=== PATIENT | female | born 1960 | race Two or more races ===

== ENCOUNTER 2022-02-02 10:10 | Emergency (ER) | payer MEDICAID ==
[~2022-02-02] VITALS: Ht 152.4 cm; Wt 96.2 kg
[~2022-02-02 10:10] MED LIST: NORPTMEDS CO
[2022-02-02 11:18] VITALS: BP 174/76
[2022-02-02] MEDS ORDERED: ALBU108A5 IN (11:27)
[2022-02-02] MEDS ORDERED: AZIT500T66 PO (11:27)
[2022-02-02] MEDS ORDERED: PROM1SOL4 PO (11:27)
== END 2022-02-02 11:38 | disposition home or self-care (01) ==
LOC: ER 10:10
DX: J03.90 Acute tonsillitis, unspecified (principal); J20.9 Acute bronchitis, unspecified; I10 Essential (primary) hypertension; Z90.710 Acquired absence of both cervix and uterus
CPT/HCPCS: 71045

== ENCOUNTER 2025-09-08 09:32 | Inpatient (IN) | payer MEDICAID, OTHER ==
[~2025-09-08] VITALS: Ht 154.9 cm; Wt 95.5 kg
[~2025-09-08 09:32] MED LIST changes: +ALBU108A5 IN; +AZIT500T66 PO; +PROM1SOL4 PO
--- NOTE | 2025-09-08 09:56 | ECG ---
[facility] Test Date: 2025-09-08 Test Time: 09:49:04 Pat Name: VIOLETA RASMUSSEN Department: [facility] ED Room: 0294 Gender: F Data Architect Manager: YONATAN : 1960 Requested By: SANDER WALTON Order Number: [id number] Reading MD: Suhail Rao Measurements Intervals [place] Rate: 72 P: 46 NH: 158 QRS: 17 QRSD: 88 T: 51 QT: 391 QTc: 428 Interpretive Statements Sinus rhythm Electronically Signed On 09-14-2025 13:47:15 PDT by Suhail Rao Please click the below link to view image of tracing.
[2025-09-08 10:07] VITALS: PULSE 74; RESP 19; O2SAT 95
--- NOTE | 2025-09-08 10:43 | ED.PDOC ---
History of Present Illness HPI Comments 64 year old female presents to the ED with a chief complaint of dizziness onset 2 weeks. For the past 2 weeks, patient has been experiencing dizziness, and headache. Fort the past week, she has been experiencing LT ear pain. Since this morning, she has been experiencing nausea, vomiting with abdominal discomfort, urinary frequency. Denies fever, chills, diarrhea, chest pain, shortness of breath, head injury, dysuria, hematuria. No other symptoms or modifying factors present at this time. Chief Complaint: Dizziness Time Seen by MD: 10:20 Reviewed Notes: Medications, Allergies Allergies: Coded Allergies: NO KNOWN ALLERGIES (Unverified , 03/23/14) Home Meds Active Scripts Albuterol Sulfate (Albuterol Sulfate Hfa) 108 Mcg/Act Aer, 108 MCG IN TID PRN, #90 AER Prov:BETTINA MCMANUS 02/02/22 Promethazine-Dm (Promethazine Dm 6.25-15 mg/5Ml) 1 Yodit Yodit, 10 YODIT PO TID, #160 ML Prov:BETTINA MCMANUS 02/02/22 Azithromycin (Azithromycin) 500 Mg Tab, 500 MG PO DAILY for 6 Days, #6 TAB Prov:BETTINA MCMANUS 02/02/22 Reported Medications No Reported Medication (NO REPORTED MEDICATION) Ea, 0 CO UNK, EA PATIENT HAS NO REPORTED MEDICATIONS 03/23/14 Information Source: Patient, Spouse Mode of Arrival: Ambulatory Severity: Moderate Timing: Weeks Duration: Since onset Prehospital treatment: None Past Medical History PAST MEDICAL HISTORY: Denies Surgical History: EXHIBIT ELECTRICIAN History: No Pertinent EXHIBIT ELECTRICIAN History Family History Family History: Reviewed,noncontributory to illness, No family hx of Cancer, No family hx of DM, No family hx of Heart juvenal, No family hx of HTN, No family hx ofKidney juvenal, No family hx of Liver juvenal, No family hx of Lung juvenal, No family hx of Stroke Social History Smoker: Non-Smoker Alcohol: Denies ETOH Use Drugs: Denies Drug Use Lives In: Home Constitutional: denies: chills, diaphoresis, fatigue, fever, malaise, sweats, weakness, others EENTM: reports: ear pain (LT); denies: blurred vision, double vision, ear bleeding, ear discharge, ear drainage, ear ringing, eye pain, eye redness, hearing loss, mouth pain, mouth swelling, nasal discharge, nose bleeding, nose congestion, nose pain, photophobia, tearing, throat pain, throat swelling, voice changes, others Respiratory: denies: cough, hemoptysis, orthopnea, SOB at rest, shortness of breath, SOB with excertion, stridor, wheezing, others Cardiovascular: denies: chest pain, dizzy spells, diaphoresis, Dyspnea on exertion, edema, irregular heart beat, left arm pain, lightheadedness, palpitations, PND, syncope, others Gastrointestinal: reports: abdominal pain, nausea, vomiting; denies: abdomen distended, blood streaked bowels, constipated, diarrhea, dysphagia, difficulty swallowing, hematemesis, melena, poor appetite, poor fluid intake, rectal bleeding, rectal pain, others Genitourinary: denies: abnormal vagina bleeding, burning, dyspareunia, dysuria, flank pain, frequency, hematuria, incontinence, pain, , vagina discharge, urgency, others Neurological: reports: dizziness; denies: fainting, headache, left sided numbness, left sided weakness, numbness, paresthesia, pre-existing deficit, right sided numbness, right sided weakness, seizure, speech problems, tingling, tremors, weakness, others Musculoskeletal: denies: back pain, gout, joint pain, joint swelling, muscle pain, muscle stiffness, neck pain, others Integumetry: denies: bruises, change in color, change in hair/nails, dryness, laceration, lesions, lumps, rash, wounds, others Allergic/Immunocompromised: denies: Difficulty Healing, Frequent Infections, Hives, Itching, others Hematologic/Lymphatic: denies: anemia, blood clots, easy bleeding, easy bruising, swollen glands, others Endocrine: denies: excessive hunger, excessive sweating, excessive thirst, excessive urination, flushing, intolerance to cold, intolerance to heat, unexplained weight gain, unexplained weight loss, others Psychiatric: denies: anxiety, bipolar disorder, depression, hopeless, panic disorder, schizophrenia, sleepless, suicidal, others All Other Systems: Reviewed and Negative Physical Exam General Appearance: Normal HEENT: Normal ENT Inspection, Pharynx Normal, TMs Normal Neck: Full Range of Motion, Non-Tender, Normal, Normal Inspection Respiratory: Chest Non-Tender, Lungs Clear, No Accessory Muscle Use, No Respi ratory Distress, Normal Breath Sounds Cardiovascular: No Edema, No JVD, No Murmur, No Gallop, Normal Peripheral Pulses, Regular Rate/Rhythm Breast Exam: Deferred Gastrointestinal: No Organomegaly, Non Tender, No Pulsatile Mass, Normal Bowel Sounds, Soft Genitalia: Deferred Pelvic: Deferred Rectal: Deferred Extremities: No calf tenderness, Normal capillary refill, Normal inspection, Normal range of motion, Non-tender, No pedal edema Musculoskeletal : Apperance: Normal Neurologic: Alert, surface plate inspector II-XII nml as Tested, No Motor Deficits, Normal Affect, Normal Mood, No Sensory Deficits Cerebellar Function: Normal Reflexes: Normal Skin: Dry, Normal Color, Warm Lymphatic: No Adenopathy Was a procedure done? Was a procedure done?: No Differential Dx Considerations may include: ACS, CVA, viral syndrome, electrolyte abnormality, infectious etiology, CVA X-Ray, Labs, Meds, VS Vital Signs Date Time Temp Pulse Resp B/P (MAP) Pulse Ox O2 Delivery O2 Flow Rate FiO2 09/08/25 12:08 97.7 73 16 158/85 (109) 95 97.7 09/08/25 10:07 97.8 74 19 132/65 (87) 95 97.8 09/08/25 10:07 74 19 95 Room Air* 0 21 09/08/25 09:49 72 09/08/25 09:35 98.5 97 16 154/87 74 98.5 Lab Test 09/08/25 13:59 09/08/25 11:45 09/08/25 10:55 Range/Units Troponin I High Sensitivity Pending 18 17 </=34 ng/L White Blood Count 7.0 4.4-10.8 10^3/uL Red Blood Count 5.17 4.0-5.20 10^6/uL Hemoglobin 15.2 12.2-16.2 g/dL Hematocrit 44.7 36.0-46.0 % Mean Corpuscular Volume 86.6 80.0-100.0 fL Mean Corpuscular Hemoglobin 29.3 28.0-32.0 pg Mean Corpuscular Hemoglobin Concent 33.9 32.0-36.0 g/dL Red Cell Distribution Width 13.6 11.8-14.3 % Platelet Count 298 140-450 10^3/uL Mean Platelet Volume 7.7 6.9-10.8 fL Neutrophils (%) (Auto) 74.0 37.0-80.0 % Lymphocytes (%) (Auto) 19.0 10.0-50.0 % Monocytes (%) (Auto) 5.0 0.0-12.0 % Eosinophils (%) (Auto) 1.2 0.0-7.0 % Basophils (%) (Auto) 0.8 0.0-2.0 % Neutrophils # (Auto) 5.2 1.6-8.6 10 ^3/uL Lymphocytes # (Auto) 1.3 0.4-5.4 10 ^3/uL Monocytes # (Auto) 0.4 0-1.3 10 ^3/uL Eosinophils # (Auto) 0.1 0-0.8 10 ^3/uL Basophils # (Auto) 0.1 0-0.2 10 ^3/uL Nucleated Red Blood Cells 0.0 % Sodium Level 141 136-145 mmol/L Potassium Level 3.8 3.5-5.1 mmol/L Chloride Level 103 98-107 mmol/L Carbon Dioxide Level 30 20-31 mmol/L Anion Gap 8 5-15 Blood Urea Nitrogen 15 9-23 mg/dL Creatinine 0.57 0.550-1.02 mg/dL Glomerular Filtration Rate Calc 101 >90 mL/min BUN/Creatinine Ratio 26.3 H 10.0-20.0 Serum Glucose 137 H 74-106 mg/dL Calcium Level 9.5 8.7-10.4 mg/dL [place] [id number] Ph: [phone] DIAGNOSTIC IMAGING Diagnostic Imaging Report : [id number] Signed PATIENT: QUAN CAMPOSCCT: [id number] UNIT: [id number] : 1960 LOC: ER ROOM / BED: / AGE / SEX: 64 / F ADM STATUS: REG ER SERVICE 1040 ORDERING PHYSICIAN: SANDER WALTON MD PROCEDURE(s): CXRP - CHEST PORTABLE REASON: sob ORDER NUMBER(s): [id number], ACCESSION NUMBER(s): [id number] XY CHEST PORTABLE, HISTORY: sob COMPARISON: None None TECHNICAL DATA: 1 view of the chest was obtained. FINDINGS: Lines and tubes: None Cardiomediastinal silhouette: normal Pulmonary vasculature: normal Lung expansion: normal Lung airspace: normal Lung interstitium: normal Pleura: normal Pneumothorax: no Bones: Unremarkable Other: no IMPRESSION: No acute intrathoracic abnormality. ATED BY: CJ FONTANEZ MD DICTATED DATE/TIME: 09/08/251106 SIGNED BY: CJ FONTANEZ MD SIGNED DATE/TIME: 09/08/251106 CC: Time of 1ST Reevaluation: 10:50 Reevaluation 1ST: Unchanged Patient Education/Counseling: Diagnosis, Treatment, Prognosis Family Education/Counseling: Diagnosis, Treatment, Prognosis SEPSIS Sepsis Screen Date sepsis recognized/suspect: Sep 08, 2025 Time Sepsis recognized/suspect: 936 Recent Procedure: No On Antibiotic Therapy: No Respiratory Rate >20: No Heart Rate >90: No Temp<36 C (96.8 F) or >38.3 C: No SBP <90 or MAP <65 mmHG: No New Acute Mental Status Change: No Is the patient on CPAP, BIPAP,: No Physician Orders Chest Portable (09/08/25 10:40) Urinalysis (09/08/25 10:40) Troponin-I Hs (09/08/25 13:40) Head Without Contrast (09/08/25 12:05) Vital Signs Date Time Temp Pulse Resp B/P (MAP) Pulse Ox O2 Delivery O2 Flow Rate FiO2 09/08/25 12:08 97.7 73 16 158/85 (109) 95 97.7 09/08/25 10:07 97.8 74 19 132/65 (87) 95 97.8 09/08/25 10:07 74 19 95 Room Air* 0 21 09/08/25 09:49 72 09/08/25 09:35 98.5 97 16 154/87 74 98.5 Laboratory Tests Test 09/08/25 10:55 White Blood Count 7.0 10^3/uL (4.4-10.8) Departure 1 Departure Time of Disposition: 14:30 (Patient with a worsening dizziness and near- syncope. We will admit patient for further workup and expert consultation) Impression: Primary Impression: Near syncope Additional Impressions: Dizziness Generalized weakness Disposition: ADMITTED INPATIENT Admit to: Med Surg Condition: Guarded Critical Care Note Critical Care Time?: No Stability Stability form required: No Heart Score Heart Score: Heart Score Response (Comments) Value History N/A 0 EKG N/A 0 Age N/A 0 Risk Factors N/A 0 Troponin N/A 0 Total 0 I personally scribed for SANDER WALTON MD ([email or web address]) on 09/08/25 at 10:43. Electronically submitted by Cookie Marcial ([email or web address]). I personally scribed for SANDER WALTON MD ([email or web address]) on 09/08/25 at 11:33. Electronically submitted by Cookie Marcial ([email or web address]). SANDER WALTON MD Sep 08, 2025 10:43
--- NOTE | 2025-09-08 11:09 | DVH ---
XY CHEST PORTABLE, HISTORY: sob COMPARISON: None None TECHNICAL DATA: 1 view of the chest was obtained. FINDINGS: Lines and tubes: None Cardiomediastinal silhouette: normal Pulmonary vasculature: normal Lung expansion: normal Lung airspace: normal Lung interstitium: normal Pleura: normal Pneumothorax: no Bones: Unremarkable Other: no IMPRESSION: No acute intrathoracic abnormality.
[2025-09-08 11:12] LABS: Hematocrit 44.7 % (36.0-46.0); Hemoglobin 15.2 g/dL (12.2-16.2); Mean Corpuscular Hemoglobin 29.3 pg (28.0-32.0); Mean Corpuscular Volume 86.6 fL (80.0-100.0); Nucleated Red Blood Cells % 0.0 %
[2025-09-08 11:15] LABS: Chloride 103 mmol/L (98-107); Potassium 3.8 mmol/L (3.5-5.1); Sodium 141 mmol/L (136-145)
[2025-09-08 11:16] LABS: Anion Gap 8 (5-15); Calcium 9.5 mg/dL (8.7-10.4); Carbon Dioxide 30 mmol/L (20-31)
[2025-09-08 11:21] LABS: BUN/Creatinine Ratio 26.3 (10.0-20.0); Blood Urea Nitrogen 15 mg/dL (9-23)
[2025-09-08 11:22] LABS: Glucose 137 mg/dL (74-106)
--- NOTE | 2025-09-08 14:54 | DVH ---
EXAM: CT HEAD WITHOUT CONTRAST INDICATION: near syncope TECHNIQUE: CT of the head without intravenous contrast. Radiation Dose Information: CT Dose: CTDI volume is 53.68 mGy. Dose-length product is 1058.02 mGy*cm The dose indicators for CT are the volume Computed Tomography (CT) Dose Index (CTDIvol) and the Dose Length Product (DLP), and are measured in units of mGy and mGy-cm, respectively. These indicators are not patient dose, but values generated from the CT scanner acquisition factors. The report includes radiation exposure data for exposures received during this examination. COMPARISON: None FINDINGS: There is no evidence of acute intracranial hemorrhage, extra-axial collection, mass effect, midline shift, herniation or hydrocephalus. The ventricles, sulci and cisterns are age appropriate. The tovar-white differentiation is intact. Patchy periventricular and subcortical white matter hypoattenuation is nonspecific but may be related to small vessel ischemic disease. The visualized paranasal sinuses and mastoid air cells are clear. The surrounding soft tissues and osseous structures are unremarkable. IMPRESSION: No acute intracranial abnormality. [place]
[2025-09-08 15:18] LABS: Urine Protein, UAD Negative (Negative)
[2025-09-08] MEDS ORDERED: ONDANSETRON HCL 4 MG/2 ML VIAL IV PRN (19:30)
[2025-09-08] MEDS ORDERED: ACETAMINOPHEN 325 MG TAB PO PRN (19:30)
--- NOTE | 2025-09-08 22:46 | DVHHP2 ---
History of Present Illness Reason for Visit: Dizziness History of Present Illness 64-year-old female presents for evaluation of dizziness. Patient endorses a two week history of having intermittent dizziness worst with movement. Denies headache or blurred vision. She states developing some nausea today. No cardiac or respiratory complaints. Past Medical History Hypertension Past Surgical History Family History Noncontributory Smoke: No ALCOHOL: none Drugs: None Lives: with Family Review of Systems Review of Systems Review of systems are currently negative otherwise addressed in HPI. Allergies: Coded Allergies: NO KNOWN ALLERGIES (Unverified , 03/23/14) Medications Current Medications Medications Dose Ordered Sig/Amos Route Start Time Stop Time Status Last Admin Dose Admin Meclizine HCl 25 mg Q6HPRN PRN PO 09/08/25 19:30 Lisinopril 20 mg DAILY PO 09/09/25 10:00 Hydrochlorothiazide 12.5 mg DAILY PO 09/09/25 10:00 Clonidine HCl 0.1 mg Q6HP PRN PO 09/08/25 19:30 Ondansetron HCl 4 mg Q4HP PRN IV 09/08/25 19:30 Acetaminophen 650 mg Q6HP PRN PO 09/08/25 19:30 Exam Vital Signs Vital Signs Date Time Temp Pulse Resp B/P (MAP) Pulse Ox O2 Delivery O2 Flow Rate FiO2 09/08/25 22:27 98.9 80 20 112/67 (82) 99 98.9 09/08/25 22:27 Room Air 09/08/25 10:07 0 21 Exam Gen: 64-year-old female in mild distress. Skin: Warm, dry, normal color and texture, no rash. HEENT: Normocephalic atraumatic, mucous membranes moist and pink. Neck: Cervical and supraclavicular nodes normal without enlargement, trachea is midline, thyroid gland is normal without masses. Pulmonary: Clear to auscultation and percussion bilaterally. Cardiac: Regular rate and rhythm. No murmur Abdomen: Soft, nontender, nondistended, bowel sounds present all 4 quadrants, no guarding, no rigidity, no organomegaly. Extremities: No cyanosis, clubbing, no edema Neuro: Cranial nerves II through XII grossly intact, normal affect and speech, no focal motor deficits. Labs/Xrays ORDERING PHYSICIAN: SANDER WALTON MD PROCEDURE(s): CXRP - CHEST PORTABLE REASON: sob ORDER NUMBER(s): [id number], ACCESSION NUMBER(s): [id number] XY CHEST PORTABLE, HISTORY: sob COMPARISON: None None TECHNICAL DATA: 1 view of the chest was obtained. FINDINGS: Lines and tubes: None Cardiomediastinal silhouette: normal Pulmonary vasculature: normal Lung expansion: normal Lung airspace: normal Lung interstitium: normal Pleura: normal Pneumothorax: no Bones: Unremarkable Other: no IMPRESSION: No acute intrathoracic abnormality. Labs Test 09/08/25 15:11 09/08/25 13:59 09/08/25 10:55 Range/Units Urine Color Light-yellow Yellow Urine Clarity Clear Clear Urine pH 6.5 5.0-9.0 Urine Specific [place] 1.018 1.001-1.035 Urine Protein Negative Negative Urine Ketones Negative Negative Urine Blood Negative Negative /uL Urine Nitrite Negative Negative Urine Bilirubin Negative Negative Urine Urobilinogen Normal Negative mg/dL Urine Leukocyte Esterase Negative Negative /uL Urine RBC <1 0 - 4 /hpf Urine Microscopic WBC < 1 0-5 /HPF Urine Squamous Epithelial Cells Few <5 /hpf Urine Bacteria None seen None Seen /hpf Urine Mucus Few None Seen Urine Glucose Normal Normal mg/dL Troponin I High Sensitivity 17 </=34 ng/L White Blood Count 7.0 4.4-10.8 10^3/uL Red Blood Count 5.17 4.0-5.20 10^6/uL Hemoglobin 15.2 12.2-16.2 g/dL Hematocrit 44.7 36.0-46.0 % Mean Corpuscular Volume 86.6 80.0-100.0 fL Mean Corpuscular Hemoglobin 29.3 28.0-32.0 pg Mean Corpuscular Hemoglobin Concent 33.9 32.0-36.0 g/dL Red Cell Distribution Width 13.6 11.8-14.3 % Platelet Count 298 140-450 10^3/uL Mean Platelet Volume 7.7 6.9-10.8 fL Neutrophils (%) (Auto) 74.0 37.0-80.0 % Lymphocytes (%) (Auto) 19.0 10.0-50.0 % Monocytes (%) (Auto) 5.0 0.0-12.0 % Eosinophils (%) (Auto) 1.2 0.0-7.0 % Basophils (%) (Auto) 0.8 0.0-2.0 % Neutrophils # (Auto) 5.2 1.6-8.6 10 ^3/uL Lymphocytes # (Auto) 1.3 0.4-5.4 10 ^3/uL Monocytes # (Auto) 0.4 0-1.3 10 ^3/uL Eosinophils # (Auto) 0.1 0-0.8 10 ^3/uL Basophils # (Auto) 0.1 0-0.2 10 ^3/uL Nucleated Red Blood Cells 0.0 % Sodium Level 141 136-145 mmol/L Potassium Level 3.8 3.5-5.1 mmol/L Chloride Level 103 98-107 mmol/L Carbon Dioxide Level 30 20-31 mmol/L Anion Gap 8 5-15 Blood Urea Nitrogen 15 9-23 mg/dL Creatinine 0.57 0.550-1.02 mg/dL Glomerular Filtration Rate Calc 101 >90 mL/min BUN/Creatinine Ratio 26.3 H 10.0-20.0 Serum Glucose 137 H 74-106 mg/dL Calcium Level 9.5 8.7-10.4 mg/dL SEPSIS Sepsis Screen Date sepsis recognized/suspect: Sep 08, 2025 Time Sepsis recognized/suspect: 2229 Recent Procedure: No On Antibiotic Therapy: No Respiratory Rate >20: No Heart Rate >90: No Temp<36 C (96.8 F) or >38.3 C: No SBP <90 or MAP <65 mmHG: No New Acute Mental Status Change: No Is the patient on CPAP, BIPAP,: No Physician Orders Meclizine Tablet (Antivert Tablet) (09/08/25 19:30) Lisinopril Tablet (Zestril Tablet) (09/09/25 10:00) Hydrochlorothiazide Tablet (Hydrochlorot (09/09/25 10:00) Brain Head Wo Contrast (09/08/25 19:17) Basic Metabolic Panel (09/09/25 04:00) Clonidine Hcl Tablet (Catapres Tablet) (09/08/25 19:30) Admit (09/08/25 19:17) Ondansetron Hcl (Zofran) (09/08/25 19:30) Cardiac Diet-2gna,Lofat,Lochol (09/09/25 Breakfast) Condition: Stable (09/08/25 19:17) Acetaminophen Tablet (Tylenol Tablet) (09/08/25 19:30) Bedrest With Bathroom Privileg (09/08/25 19:17) Vital Signs Date Time Temp Pulse Resp B/P (MAP) Pulse Ox O2 Delivery O2 Flow Rate FiO2 09/08/25 22:27 98.9 80 20 112/67 (82) 99 98.9 09/08/25 22:27 80 16 99 Room Air 09/08/25 21:10 98.3 79 16 171/88 (115) 96 98.3 09/08/25 17:38 97.8 70 16 176/87 (116) 96 97.8 09/08/25 15:36 97.8 67 16 143/76 (98) 96 97.8 Laboratory Tests Test 09/08/25 10:55 White Blood Count 7.0 10^3/uL (4.4-10.8) Assessment/Plan Assessment/Plan Assessment Hypertensive crisis Dizziness Plan Admit the patient to [facility] to the hospitalist MRI of the brain pending Meclizine As needed antihypertensives Continue treatment per orders. Plan discussed with: Patient My Orders Orders - LI MAYNARD Procedure Category Date Status Time Meclizine Tablet PHA 09/08/25 In Process (Antivert Tablet) 19:30 Lisinopril Tablet PHA 09/09/25 In Process (Zestril Tablet) 10:00 Hydrochlorothiazide PHA 09/09/25 In Process Tablet (Hydrochlorot 10:00 Brain Head Wo Contrast MRI 09/08/25 Logged 19:17 Basic Metabolic Panel LAB 09/09/25 Verified 04:00 Clonidine Hcl Tablet PHA 09/08/25 In Process (Catapres Tablet) 19:30 Admit ADMIT 09/08/25 Transmitted 19:17 Ondansetron Hcl PHA 09/08/25 In Process (Zofran) 19:30 Cardiac DIET 09/09/25 Transmitted Diet-2gna,Lofat,Lochol Breakfast Condition: Stable DESMOND 09/08/25 In Process 19:17 Acetaminophen Tablet PHA 09/08/25 In Process (Tylenol Tablet) 19:30 Bedrest With Bathroom DESMOND 09/08/25 In Process Privileg 19:17 Date of Service: Sep 08, 2025 Billing Provider: LI MAYNARD Common Visit Codes: [id number] INP/OBS CARE (MOD) LI MAYNARD Sep 08, 2025 22:46
[2025-09-08 22:53] VITALS: BP 157/90; PULSE 78; RESP 18; TEMP 98; O2SAT 98
[2025-09-08 22:57] VITALS: BP 157/90; PULSE 78; RESP 18; TEMP 98; O2SAT 98
[2025-09-08 23:00] VITALS: PULSE 78; RESP 18; O2SAT 98
[2025-09-08] MEDS ORDERED: ACET-1881 PO (23:55)
[2025-09-09] VITALS (8 sets, daily range): BP systolic 108–152; BP diastolic 62–94; PULSE 63–98; RESP 16–18; TEMP 97.7–98.5; O2SAT 94–98
[2025-09-09] MEDS: MECLIZINE HCL 25 MG TAB PO PRN (00:16)
[2025-09-09 06:36] LABS: Chloride 105 mmol/L (98-107); Potassium 3.6 mmol/L (3.5-5.1); Sodium 141 mmol/L (136-145)
[2025-09-09 06:37] LABS: Anion Gap 9 (5-15); Calcium 8.8 mg/dL (8.7-10.4); Carbon Dioxide 27 mmol/L (20-31)
[2025-09-09 06:42] LABS: BUN/Creatinine Ratio 25.0 (10.0-20.0); Blood Urea Nitrogen 13 mg/dL (9-23); Glucose 100 mg/dL (74-106)
--- NOTE | 2025-09-09 09:17 | DVH ---
PROCEDURE: MRI OF THE BRAIN WITHOUT CONTRAST. CLINICAL INDICATION: dizziness TECHNIQUE: Multiplanar, multi sequence MRI of the brain was performed without intravenous contrast. COMPARISON: CT HEAD WITHOUT CONTRAST on DOS: 09/08/25 FINDINGS: There are a few scattered subcortical and periventricular T2/FLAIR white matter hyperintensities. The signal characteristics of the brain parenchyma is otherwise within normal limits. There are no areas of restricted diffusion to suggest acute infarct. No evidence of space occupying mass lesion, extra- axial collections or hemorrhage is noted. The ventricles, sulci and basal cisterns are intact. There is no signal abnormality in the posterior fossa. The paranasal sinuses and mastoid air cells are well pneumatized. The orbits and nasopharynx are inta ct. The osseous structures are intact. The vessels of the skull base demonstrate signal void consistent with patency. IMPRESSION: 1. No acute intracranial abnormality. 2. Subcortical and periventricular T2/FLAIR white matter hyperintensities which are nonspecific but m ost commonly associated sequelae of prior microvascular ischemic changes although other etiologies ar e not excluded.
[2025-09-09] MEDS: hydroCHLOROthiazide 25 MG TAB PO SCH (10:35)
--- NOTE | 2025-09-09 10:56 | DVHPN2 ---
Subjective The patient is seen and examined at bedside. Still feel dizzy and having headache. Blood pressure is better controlled. She said she compliant with her medication at home. She only takes losartan at home Reviewed: Care Plan, H&P, Labs, Medications, Previous Orders, Radiology Changes from previous H/P or p: No Changes Objective Vitals Vital Signs Date Time Temp Pulse Resp B/P (MAP) Pulse Ox O2 Delivery O2 Flow Rate FiO2 09/09/25 10:35 132/77 09/09/25 09:00 98.0 68 17 94 98.0 09/08/25 23:00 Room Air* 0 21 Intake/Output Intake and Output 09/09/25 07:00 Intake Total 200 ml Balance 200 ml Intake Oral 200 ml # Voids 1 General Appearance: Alert, Oriented X3, Cooperative, No acute distress HEENT: Atraumatic, PERRLA, EOMI, Mucous membr. moist/pink Neck: Supple Lungs: Clear to auscultation, Normal air movement Cardiovascular: Regular rate, Normal S1, Normal S2, No murmurs, Gallops, Rubs Abdomen: Normal bowel sounds, Soft, No tenderness, No hepatospenomegaly Neuro: Cranial nerves 3-12 NL Psych/Mental Status: Mental status NL Medications Current Medications Medications Dose Ordered Sig/Amos Route Start Time Stop Time Status Last Admin Dose Admin Meclizine HCl 25 mg Q6HPRN PRN PO 09/08/25 19:30 09/09/25 00:16 25 MG Lisinopril 20 mg DAILY PO 09/09/25 10:00 Hydrochlorothiazide 12.5 mg DAILY PO 09/09/25 10:00 09/09/25 10:35 12.5 MG Clonidine HCl 0.1 mg Q6HP PRN PO 09/08/25 19:30 Ondansetron HCl 4 mg Q4HP PRN IV 09/08/25 19:30 Acetaminophen 650 mg Q6HP PRN PO 09/08/25 19:30 Laboratory Results Laboratory Tests 09/08/25 10:55 09/09/25 05:41 Chemistry Test 09/09/25 05:41 Calcium Level 8.8 mg/dL (8.7-10.4) Urinalysis Test 09/08/25 15:11 Urine Color Light-yellow (Yellow) Urine Clarity Clear (Clear) Urine pH 6.5 (5.0-9.0) Urine Specific [place] 1.018 (1.001-1.035) Urine Protein Negative (Negative) Urine Ketones Negative (Negative) Urine Blood Negative /uL (Negative) Urine Nitrite Negative (Negative) Urine Bilirubin Negative (Negative) Urine Urobilinogen Normal mg/dL (Negative) Urine Leukocyte Esterase Negative /uL (Negative) Urine RBC <1 /hpf (0 - 4) Urine Microscopic WBC < 1 /HPF (0-5) Urine Squamous Epithelial Cells Few /hpf (<5) Urine Bacteria None seen /hpf (None Seen) Urine Mucus Few (None Seen) Urine Glucose Normal mg/dL (Normal) Labs and/or images reviewed: Labs reviewed by me Assessment/Plan Assessment/Plan Hypertensive crisis Dizziness Plan Continuing current management. MRI of the brain showed no acute process except prior microvascular ischemic changes probable secondary to hypertensive uncontrolled. Continuing with lisinopril. We add hydrochlorothiazide in her regimen in his seemed to control her blood pressure. Meclizine p.r.n. for dizziness. This medical document was created using an electronic medical record system with [employer] direct computerized dictation system. Although this document has been carefully reviewed, there may still be some phonetic and typographical errors. These areas are purely typographical due to imperfections of the software programs, and do not reflect any compromise in the patient's medical care. Plan discussed with: Patient Date of Service: Sep 09, 2025 Billing Provider: ALINA GRAHAM MD Common Visit Codes: [id number] INP/OBS CARE(HIGH) ALINA GRAHAM MD Sep 09, 2025 10:56
[2025-09-09 12:34] LABS: Hepatitis B Surface Antigen Negative (Negative); Hepatitis C Antibody Negative (Negative)
[2025-09-09] MEDS: LISINOPRIL 20 MG TAB PO SCH (12:47)
[2025-09-10 01:00] VITALS: BP 119/80; PULSE 72; RESP 18; TEMP 97.7; O2SAT 94
[2025-09-10 05:00] VITALS: BP 117/70; PULSE 63; RESP 20; TEMP 98; O2SAT 91
[2025-09-10 08:00] VITALS: RESP 17
[2025-09-10 08:42] LABS: Chloride 104 mmol/L (98-107); Hematocrit 45.0 % (36.0-46.0); Hemoglobin 15.2 g/dL (12.2-16.2); Mean Corpuscular Hemoglobin 29.3 pg (28.0-32.0); Mean Corpuscular Volume 86.9 fL (80.0-100.0); Nucleated Red Blood Cells % 0.2 %; Potassium 3.8 mmol/L (3.5-5.1); Sodium 143 mmol/L (136-145)
[2025-09-10 08:43] LABS: Anion Gap 8 (5-15); Calcium 9.5 mg/dL (8.7-10.4); Carbon Dioxide 31 mmol/L (20-31)
[2025-09-10 08:48] LABS: BUN/Creatinine Ratio 25.8 (10.0-20.0); Blood Urea Nitrogen 16 mg/dL (9-23); Glucose 106 mg/dL (74-106)
[2025-09-10 08:57] VITALS: BP 113/81; PULSE 79; RESP 20; TEMP 97.9; O2SAT 96
[2025-09-10] MEDS ORDERED: LISI20TA56 PO (11:17)
[2025-09-10] MEDS ORDERED: HYDR25TA5 PO (11:17)
--- NOTE | 2025-09-10 11:18 | DVHDS2 ---
Discharge Summary Date of Admission Sep 08, 2025 at 19:17 Date of Discharge: Sep 10, 2025 Admitting Diagnosis Hypertensive crisis Dizziness Labs/Diagnostic Data: Laboratory Results Test 09/10/25 07:30 09/09/25 05:41 09/08/25 15:11 09/08/25 13:59 White Blood Count 5.4 10^3/uL (4.4-10.8) Red Blood Count 5.18 10^6/uL (4.0-5.20) Hemoglobin 15.2 g/dL (12.2-16.2) Hematocrit 45.0 % (36.0-46.0) Mean Corpuscular Volume 86.9 fL (80.0-100.0) Mean Corpuscular Hemoglobin 29.3 pg (28.0-32.0) Mean Corpuscular Hemoglobin Concent 33.8 g/dL (32.0-36.0) Red Cell Distribution Width 13.7 % (11.8-14.3) Platelet Count 297 10^3/uL (140-450) Mean Platelet Volume 7.8 fL (6.9-10.8) Neutrophils (%) (Auto) 45.5 % (37.0-80.0) Lymphocytes (%) (Auto) 42.7 % (10.0-50.0) Monocytes (%) (Auto) 6.5 % (0.0-12.0) Eosinophils (%) (Auto) 4.4 % (0.0-7.0) Basophils (%) (Auto) 0.9 % (0.0-2.0) Neutrophils # (Auto) 2.4 10 ^3/uL (1.6-8.6) Lymphocytes # (Auto) 2.3 10 ^3/uL (0.4-5.4) Monocytes # (Auto) 0.3 10 ^3/uL (0-1.3) Eosinophils # (Auto) 0.2 10 ^3/uL (0-0.8) Basophils # (Auto) 0 10 ^3/uL (0-0.2) Nucleated Red Blood Cells 0.2 % Sodium Level 143 mmol/L (136-145) Potassium Level 3.8 mmol/L (3.5-5.1) Chloride Level 104 mmol/L (98-107) Carbon Dioxide Level 31 mmol/L (20-31) Anion Gap 8 (5-15) Blood Urea Nitrogen 16 mg/dL (9-23) Creatinine 0.62 mg/dL (0.550-1.02) Glomerular Filtration Rate Calc 99 mL/min (>90) BUN/Creatinine Ratio 25.8 (10.0-20.0) Serum Glucose 106 mg/dL (74-106) Calcium Level 9.5 mg/dL (8.7-10.4) Hepatitis B Surface Antigen Negative (Negative) Hepatitis C Antibody Negative (Negative) Urine Color Light-yellow (Yellow) Urine Clarity Clear (Clear) Urine pH 6.5 (5.0-9.0) Urine Specific [place] 1.018 (1.001-1.035) Urine Protein Negative (Negative) Urine Ketones Negative (Negative) Urine Blood Negative /uL (Negative) Urine Nitrite Negative (Negative) Urine Bilirubin Negative (Negative) Urine Urobilinogen Normal mg/dL (Negative) Urine Leukocyte Esterase Negative /uL (Negative) Urine RBC <1 /hpf (0 - 4) Urine Microscopic WBC < 1 /HPF (0-5) Urine Squamous Epithelial Cells Few /hpf (<5) Urine Bacteria None seen /hpf (None Seen) Urine Mucus Few (None Seen) Urine Glucose Normal mg/dL (Normal) Troponin I High Sensitivity 17 ng/L (</=34) Other Laboratory Tests 09/10/25 07:30 Brief Hx & Hospital Course: This is a 64 years old female come into emergency department because of dizziness. She had two weeks of intermittent dizziness and worsened with movement. Patient denied any headache or blurred vision. Patient had some nauseated and decided to come to the hospital for further evaluation. The patient was found to have hypertension urgency with a blood pressure up to 170 systolic and 100 diastolic. The patient take losartan at home. The patient was started on lisinopril and HCTZ here in the hospital. Her blood pressure is much better controlled now. No dizziness. So I am going to discharge her home. Advised her to follow up with primary care physician 1-2 weeks. Activity as tolerated. Diet per home diet. Recommend low-salt low-cholesterol diet. Physical exam: HEENT: Normocephalic atraumatic pupils equal react to light and accommodation. Extraocular muscles intact, conjunctiva pink, oropharynx moist, no thrush, no exudate. Lymphatic: No lymphadenopathy Cardiovascular exam: S1, S2 was heard. No murmurs, rubs, gallops Lung: Clear on auscultation bilaterally, no wheeze, rale, rhonchi. GI: Abdominal soft, nondistended, nontenderness, positive bowel sounds. Extremity: No crepitus, cyanosis, edema. Pedal pulses present bilateral. Full range of motion. Skin: Normal turgor, no rash. Psych: Alert, oriented x3. Neurology: No focal deficits, cranial nerve II to XII grossly intact. This medical document was created using an electronic medical record system with Swype dictation system. Although this document has been carefully reviewed, there may still be some phonetic and typographical errors. These areas are purely typographical due to imperfections of the software programs, and do not reflect any compromise in the patient's medical care. Condition at Discharge: Stable Final Diagnosis/Problems List Hypertensive crisis, resolved Dizziness Discharge Disposition: Home Discharge Instruct/Medications Diet: Cardiac 2g Na,low cholest Activity: No Restrictions, As Tolerated Follow Up/Referral: pcp 1-2 weeks Scheduled Hctz (Hydrochlorothiazide), 12.5 MG PO DAILY Lisinopril (Lisinopril), 20 MG PO DAILY Promethazine-Dm (Promethazine Dm 6.25-15 mg/5Ml), 10 PETE PO TID Scheduled PRN Acetaminophen (Acetaminophen), 500 MG PO PRN PRN for MILD PAIN, (Reported) Albuterol Sulfate (Albuterol Sulfate Hfa), 108 MCG IN TID PRN Discontinued Medications Azithromycin (Azithromycin), 500 MG PO DAILY No Reported Medication (No Reported Medication), 0 CO UNK, (Reported) Discharge Statement: "Patient was advised to return to the ER or call 911 if any headaches, dizziness, shortness of breath, chest pain, abdominal pain, bleeding, fevers, or worsening of medical condition. Patient was counseled about treatment plan, medications, possible side effects, patientverbalized understanding. All questions were answered to the best of my ability. This discharge took greater then 30 minutes in planning, reviewing documentation, counseling the patient, and discussing with other team members." ASSESSMENT ASSESSMENT Assessment Hypertensive urgency Date of Service: Sep 10, 2025 Billing Provider: ALINA GRAHAM MD Common Visit Codes: 11950-OSA/OBS DISCH DAY >30min ALINA GRAHAM MD Sep 10, 2025 11:18
[2025-09-10 12:33] VITALS: BP 104/66; PULSE 75; RESP 16; TEMP 98.9; O2SAT 94
--- NOTE | 2025-09-13 14:01 | DVHSR ---
APPROVED REPORT EXAM: Two-dimensional and M-mode echocardiogram with Doppler and color Doppler. Blood Pressure: 117/70 mmHg INDICATION Dizziness and Vertigo RISK FACTORS Obesity: Height: 5'1, Weight: 210 DIMENSIONS LVDd4.5 (3.8-5.7cm)LA (2D)3.3 (1.9-4.0cm)Aortic Root3.0 (2.0-3.7cm) LVDs3.2 (2.5-4.0cm)LA (MM) (1.9-4.0cm)Aortic Cusp Exc1.3 (1.5-2.0cm) EF (%) 55.0 (55-70%)Rt. Atrium3.1 (1.9-4.0cm)Asc. Aorta cm IVSd1.1 (0.7-1.1cm)RV (D)3.2 (1.8-2.4cm) PWd0.8 (0.7-1.1cm) Mitral Valve MitralMitral Stenosis E wave0.63m/sMV Mean GR.mmHg A wave1.07m/sMV Peak GR.60mmHg E/A ratio0.62D MVAcm2 DECEL [id number] 1/2 [place] Aortic Valve Aortic ValveAortic Stenosis V11.03m/Celine Mean GR.mmHg V21.63m/Celine Peak GR.11mmHg LVOT Diameter1.8 (1.8-2.4cm)Doppler AVA1.61cm2 Pulmonic Valve V20.95m/s Tricuspid Valve TR Velocity2.62m/s [id number] Conclusion lvef 60% normal rv function left atrium enlarged no severe valve abnormaliteis noted asked to read this echo 1 hour ago
== END 2025-09-10 14:08 | disposition home or self-care (01) | DRG 199 ==
LOC: ER 09:32 → EDUNIT# 09:32 → OVERFLOW 19:17 → WEST WING 22:53
PROVIDERS: ADMIT Internal Medicine; ATTEND Internal Medicine
DX: I16.0 Hypertensive urgency (principal); Z79.899 Other long term (current) drug therapy; I10 Essential (primary) hypertension
CPT/HCPCS: 36415; 70450; 70551; 71045; 80048; 81001; 84484; 85025; 86803; 87340; 93005; 93306; G0378